=== PATIENT | female | born 1995 | race Hispanic/Latino ===

== ENCOUNTER 2020-05-15 13:16 | Emergency (ER) | payer OTHER ==
[~2020-05-15] VITALS: Ht 152.4 cm; Wt 65.8 kg
[2020-05-15] MEDS ORDERED: ACETAMINOPHEN500 MG PO (13:41)
[2020-05-15] MEDS ORDERED: CLINDAMYCIN HC300 MG PO (13:41)
[2020-05-15] MEDS ORDERED: IBUPROFEN IB200 MG PO (13:41)
--- NOTE | 2020-05-15 13:45 | NUR ---
list of free/low cost mammograms by clive mcgee given at discharge.
--- NOTE | 2020-05-15 13:51 | Emergency Department Note ---
History of Present Illnes History of Present Illness Chief Complaint: Skin Rash or Abscess History of Present Illness This is a 25 year old female c/o left sided armpit pain, swelling 2 weeks, breast tenderness at times, no breast mass. her mother has breast CANCER at the age of 25. Historian: Patient Arrival Mode: Car Editor Producer Required: No Onset (how long ago): week(s) Radiation: Reports non-radiation Severity: moderate Onset quality: gradual Progression: worsening Relieving factors: none Exacerbating factors: none Associated symptoms: Reports other (left breast pain) Treatments prior to arrival: none Past Medical/Family History Physician Review I have reviewed the patient's past medical and family history. Any updates have been documented here. Past Medical History Recent Fever: No Clinical Suspicion of Infectio: Yes New/Unexplained Change in Ment: No Past Medical History: None Past Surgical History: None Social History Smoking Cessation: Never Smoker Physically hurt or threatened: No Review of Systems Review of Systems Constitutional: Reports no symptoms EENTM: Reports no symptoms Cardiovascular: Reports no symptoms Respiratory: Reports no symptoms Gastrointestinal: Reports no symptoms Genitourinary: Reports no symptoms Musculoskeletal: Reports no symptoms Integumentary: Reports lumps (left armpit lump) Neurological: Reports no symptoms Psychological: Reports no symptoms Endocrine: Reports no symptoms Hematological/Lymphatic: Reports no symptoms Physical Exam Related Data Allergies: Coded Allergies: Penicillins (Verified Allergy, Unknown, 05/15/20) Triage Vital Signs Vital Signs Date Time Temp Pulse Resp B/P (MAP) Pulse Ox O2 Delivery O2 Flow Rate FiO2 05/15/20 13:20 99.4 86 16 164/89 100 Room Air Vital signs reviewed: Yes Physical Exam CONSTITUTIONAL Constitutional: Present well-developed, Present well-nourished HENT HENT: Present normocephalic, Present atraumatic, Present oropharynx clear/moist, Present nose normal HENT L/R: Present left ext ear normal, Present right ext ear normal EYES Eyes: Reports PERRL, Reports conjunctivae normal NECK Neck: Present ROM normal PULMONARY Pulmonary: Present effort normal, Present breath sounds normal CARDIOVASCULAR Cardiovascular: Present regular rhythm, Present heart sounds normal, Present capillary refill normal, Present normal rate GASTROINTESTINAL Abdominal: Present soft, Present nontender, Present bowel sounds normal GENITOURINARY Genitourinary: Present exam deferred SKIN Skin: Present lesion (small lymphnode 1 cm size, tender, no erythemam no opened wound no abscess) MUSCULOSKELETAL Musculoskeletal: Present ROM normal NEUROLOGICAL Neurological: Present alert, Present oriented x 3, Present no gross motor or sensory deficits PSYCHOLOGICAL Psychological: Present mood/affect normal, Present judgement normal Assessment & Plan Medical Decision Making MDM reactive lymph nodes vs breast cancer Assessment & Plan Final Impression: (1) Lymphadenopathy (2) Mastitis in female Depart Disposition: HOME, SELF-CARE Last Vital Signs Date Time Temp Pulse Resp B/P (MAP) Pulse Ox O2 Delivery O2 Flow Rate FiO2 05/15/20 13:20 99.4 86 16 164/89 100 Room Air Home Meds Active Scripts Ibuprofen (IBUPROFEN IB) 200 Mg Tablet, 3 TAB PO Q6H PRN for pain, #60 Prov:CHASITY ARREGUIN MD 05/15/20 Acetaminophen (ACETAMINOPHEN) 500 Mg Tablet, 1 TAB PO Q6H PRN for pain, #90 THERAPEUTICALLY SUBSTITUTED WITH ACETAMINOPHEN 325MG Prov:CHASITY ARREGUIN MD 05/15/20 Clindamycin Hcl (CLINDAMYCIN HCL) 300 Mg Capsule, 1 CAP PO TID for 10 Days, #21 Prov:CHASITY ARREGUIN MD 05/15/20 Physician Attestation Provider Attestation need breast cancer screening CHASITY ARREGUIN MD May 15, 2020 13:41
== END 2020-05-15 13:47 | disposition home or self-care (01) ==
LOC: FSED 13:36
DX: N61.0 Mastitis without abscess (principal); R59.1 Generalized enlarged lymph nodes
CPT/HCPCS: 99283